=== PATIENT | male | born 1945 | race Caucasian/White ===

== ENCOUNTER 2018-04-14 19:25 | Emergency (ER) | payer OTHER ==
[~2018-04-14] VITALS: Ht 175.3 cm; Wt 76.7 kg
--- NOTE | 2018-04-14 19:33 | Emergency Room Report ---
History of Present Illness General Chief Complaint: Syncope Source: Patient, EMS (Marshall Bonilla MD) Present Illness HPI Patient is a 72-year-old male presented after witnessed syncopal episode. Patient reportedly had syncopal episode after drinking alcohol and smoking a marijuana vape. Patient states he normally does not drink so much. He denies any prior cardiac history. He had recently flown in from [place].He reports having some occipital headache after hitting his head.Patient denies any recent leg pain or swelling. (Marshall Bonilla MD) Allergies: Coded Allergies: No Known Allergies (Unverified , 04/14/18) Patient History Past Medical History: see triage record Reviewed Nursing Documentation: PMH: Agreed; PSxH: Agreed (Marshall Bonilla MD) Nursing Documentation-PMH Past Medical History: No History, Except For (Marshall Bonilla MD) Physical Exam Vital Signs Date Time Temp Pulse Resp B/P (MAP) Pulse Ox O2 Delivery O2 Flow Rate FiO2 04/14/18 19:17 97.7 95 16 115/75 98 Room Air Sp02 EP Interpretation: reviewed, normal General Appearance: normal inspection, well appearing, no apparent distress, alert, GCS 15, non-toxic Head: atraumatic ENT: normal ENT inspection, hearing grossly normal, normal voice Neck: normal inspection, full range of motion, supple, no bony tend Respiratory: normal inspection, lungs clear, normal breath sounds, no respiratory distress, no retraction, no wheezing Cardiovascular #1: regular rate, rhythm, no edema Gastrointestinal: normal inspection, normal bowel sounds, non tender, soft, no guarding, no hernia Genitourinary: no CVA tenderness Musculoskeletal: normal inspection, back normal, normal range of motion Neurologic: normal inspection, alert, oriented x3, responsive, 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 This may have contributed to his syncope episode. EKG interpreted by me showed normal sinus rhythm without acute ST or T wave changes. Patient was noted to have no premonitory chest pain. Patient denies any recent leg pain or swelling. CTA of the chest was ordered due to patient's recent plane travel and risk for possible PEPatient presented for syncope. Differential diagnosis include was not limited to anemia, orthostatic hypotension, vasovagal episode, arrhythmia among others. Because of complexity of patient's case laboratory testing and imaging studies were ordered.CT of the chest read by radiology showed large renal cysts without evident pulmonary embolism or aortic dissection. Patient declined CT imaging of his head. Patient has known history of renal cyst. Patient was discussed with Dr. Brewster for observation. Patient's initial troponin was nondiagnostic. Patient was endorsed to Dr. Hunt troponin. Laboratory Tests Test 04/14/18 20:00 04/14/18 22:00 04/15/18 04:00 White Blood Count 7.2 K/UL (4.8-10.8) Red Blood Count 4.91 M/UL (4.70-6.10) Hemoglobin 14.9 G/DL (14.2-18.0) Hematocrit 45.2 % (42.0-52.0) Mean Corpuscular Volume 92 FL (80-99) Mean Corpuscular Hemoglobin 30.3 PG (27.0-31.0) Mean Corpuscular Hemoglobin Concent 32.9 G/DL (32.0-36.0) Red Cell Distribution Width 13.1 % (11.6-14.8) Platelet Count 142 K/UL (150-450) L Mean Platelet Volume 9.4 FL (6.5-10.1) Neutrophils (%) (Auto) 66.5 % (45.0-75.0) Lymphocytes (%) (Auto) 21.1 % (20.0-45.0) Monocytes (%) (Auto) 10.1 % (1.0-10.0) H Eosinophils (%) (Auto) 1.3 % (0.0-3.0) Basophils (%) (Auto) 1.1 % (0.0-2.0) Prothrombin Time 10.3 SEC (9.30-11.50) Prothrombin Time INR 1.0 (0.9-1.1) PTT 20 SEC (23-33) L Urine Color Pale yellow Urine Appearance Clear Urine pH 5 (4.5-8.0) Urine Specific Buchanan 1.015 (1.005-1.035) Urine Protein 2+ (NEGATIVE) H Urine Glucose (UA) Negative (NEGATIVE) Urine Ketones 1+ (NEGATIVE) H Urine Blood 1+ (NEGATIVE) H Urine Nitrite Negative (NEGATIVE) Urine Bilirubin Negative (NEGATIVE) Urine Urobilinogen Normal MG/DL (0.0-1.0) Urine Leukocyte Esterase Negative (NEGATIVE) Urine RBC 2-4 /HPF (0 - 0) H Urine WBC 0 /HPF (0 - 0) Urine Squamous Epithelial Cells Occasional /LPF Urine Bacteria None /HPF (NONE) Sodium Level 141 MMOL/L (136-145) Potassium Level 3.7 MMOL/L (3.5-5.1) Chloride Level 106 MMOL/L (98-107) Carbon Dioxide Level 28 MMOL/L (21-32) Anion Gap 7 mmol/L (5-15) Blood Urea Nitrogen 22 mg/dL (7-18) H Creatinine 1.2 MG/DL (0.55-1.30) Estimate Glomerular Filtration Rate 59.9 mL/min (>60) Glucose Level 95 MG/DL (74-106) Calcium Level 8.8 MG/DL (8.5-10.1) Total Bilirubin 0.9 MG/DL (0.2-1.0) Aspartate Amino Transferase (AST) 18 U/L (15-37) Alanine Aminotransferase (ALT) 30 U/L (12-78) Alkaline Phosphatase 58 U/L (46-116) Troponin I 0.178 ng/mL (0.000-0.056) Total Protein 7.1 G/DL (6.4-8.2) Albumin 3.6 G/DL (3.4-5.0) Globulin 3.5 g/dL Albumin/Globulin Ratio 1.0 (1.0-2.7) Lipase 115 U/L (73-393) Serum Alcohol 71 mg/dL (Marshall Bonilla MD) ER Course Hospital Course 72-year-old male presents ED s/p syncopal episode. Clinical course Patient initially seen and evaluated by Dr. Bonilla, please see his note for full history and physical Initial troponin 0.178. Patient was to be admitted. Patient currently in ED due to ED boarding. Repeat troponin 2 here shows normalization with troponin now 0.00 Patient is asking to be discharged. States he feels better. Walking in ED without difficulty. Denies chest pain or shortness of breath. States that he smoked some marijuana just prior to onset of symptoms Admitting physician Dr. Brewster at bedside to evaluate patient; agrees the patient can be discharged to home at this time. I agree with this assessment. Patient states he has a PMD to follow-up with I. I feel this is a highly complex case requiring extensive working including EKG/Rhythm strip, Xray/CT/US, Blood/urine lab work, repeat exams while in ED, and administration of strong opiates/narcotics for pain control, admission to hospital or close patient follow up. Diagnosis - syncope Stable and discharged to home. Followup with PMD. Return to ED if symptoms recur or worsen Labs Test 04/14/18 20:00 04/14/18 22:00 04/15/18 04:00 White Blood Count 7.2 K/UL (4.8-10.8) Red Blood Count 4.91 M/UL (4.70-6.10) Hemoglobin 14.9 G/DL (14.2-18.0) Hematocrit 45.2 % (42.0-52.0) Mean Corpuscular Volume 92 FL (80-99) Mean Corpuscular Hemoglobin 30.3 PG (27.0-31.0) Mean Corpuscular Hemoglobin Concent 32.9 G/DL (32.0-36.0) Red Cell Distribution Width 13.1 % (11.6-14.8) Platelet Count 142 K/UL (150-450) Mean Platelet Volume 9.4 FL (6.5-10.1) Neutrophils (%) (Auto) 66.5 % (45.0-75.0) Lymphocytes (%) (Auto) 21.1 % (20.0-45.0) Monocytes (%) (Auto) 10.1 % (1.0-10.0) Eosinophils (%) (Auto) 1.3 % (0.0-3.0) Basophils (%) (Auto) 1.1 % (0.0-2.0) Prothrombin Time 10.3 SEC (9.30-11.50) Prothromb Time International Ratio 1.0 (0.9-1.1) Activated Partial Thromboplast Time 20 SEC (23-33) Urine Color Pale yellow Urine Appearance Clear Urine pH 5 (4.5-8.0) Urine Specific Buchanan 1.015 (1.005-1.035) Urine Protein 2+ (NEGATIVE) Urine Glucose (UA) Negative (NEGATIVE) Urine Ketones 1+ (NEGATIVE) Urine Blood 1+ (NEGATIVE) Urine Nitrite Negative (NEGATIVE) Urine Bilirubin Negative (NEGATIVE) Urine Urobilinogen Normal MG/DL (0.0-1.0) Urine Leukocyte Esterase Negative (NEGATIVE) Urine RBC 2-4 /HPF (0 - 0) Urine WBC 0 /HPF (0 - 0) Urine Squamous Epithelial Cells Occasional /LPF Urine Bacteria None /HPF (NONE) Sodium Level 141 MMOL/L (136-145) Potassium Level 3.7 MMOL/L (3.5-5.1) Chloride Level 106 MMOL/L (98-107) Carbon Dioxide Level 28 MMOL/L (21-32) Anion Gap 7 mmol/L (5-15) Blood Urea Nitrogen 22 mg/dL (7-18) Creatinine 1.2 MG/DL (0.55-1.30) Estimat Glomerular Filtration Rate 59.9 mL/min (>60) Glucose Level 95 MG/DL (74-106) Calcium Level 8.8 MG/DL (8.5-10.1) Total Bilirubin 0.9 MG/DL (0.2-1.0) Aspartate Amino Transf (AST/SGOT) 18 U/L (15-37) Alanine Aminotransferase (ALT/SGPT) 30 U/L (12-78) Alkaline Phosphatase 58 U/L (46-116) Troponin I 0.178 ng/mL (0.000-0.056) 0.000 ng/mL (0.000-0.056) 0.003 ng/mL (0.000-0.056) Total Protein 7.1 G/DL (6.4-8.2) Albumin 3.6 G/DL (3.4-5.0) Globulin 3.5 g/dL Albumin/Globulin Ratio 1.0 (1.0-2.7) Lipase 115 U/L (73-393) Serum Alcohol 71 mg/dL (Brad Bills MD) EKG Diagnostic Results Rate: normal Rhythm: NSR ST Segments: no acute changes (Marshall Bonilla MD) Last Vital Signs Date Time Temp Pulse Resp B/P (MAP) Pulse Ox O2 Delivery O2 Flow Rate FiO2 04/14/18 19:17 97.7 95 16 115/75 98 Room Air Status: improved (Marshall Bonilla MD) Status: improved (Brad Bills MD) Disposition: HOME, SELF-CARE Condition: Stable Marshall Bonilla MD Apr 14, 2018 19:33 Brad Bills MD Apr 15, 2018 11:35
[2018-04-14 19:45] VITALS: BP 145/81
--- NOTE | 2018-04-14 19:50 | NUR ---
ED Nurse Note: pt brought in by [facility] c/o syncope, per EMS report pt was walking and had syncopal episode on the streets sidewalk, and hit his head per family report but no deformity, no open wound, no contusion, +tenderness. Pt AA&ox4, gcs=15, skin warm and dry, resp even and unlabored, -n/v/d, ambulates w/steady gait, will cont monitor. NSR on monitoring specialist. vss.
--- NOTE | 2018-04-14 20:00 | NUR ---
ED Nurse Note: pt refused to go CT, ERMD aware, verified ERMD prior to giving pt water. per ERMD, pt able to drink
[2018-04-14 20:28] LABS: APPEARANCE,URINE CLEAR; BILIRUBIN, URINE NEGATIVE (NEGATIVE); COLOR,URINE PALE YELLOW; GLUCOSE, URINE (UA) NEGATIVE (NEGATIVE); KETONES,URINE 1+ (NEGATIVE); LEUKOCYTE ESTERASE ,URINE NEGATIVE (NEGATIVE); NITRITE,URINE NEGATIVE (NEGATIVE); PH,URINE 5 (4.5-8.0); PROTEIN,URINE 2+ (NEGATIVE); UROBILINOGEN,URINE NORMAL MG/DL (0.0-1.0)
[2018-04-14 20:32] LABS: BASOPHILS % (AUTO) 1.1 % (0.0-2.0); EOSINOPHILS % (AUTO) 1.3 % (0.0-3.0); HEMATOCRIT 45.2 % (42.0-52.0); HEMOGLOBIN 14.9 G/DL (14.2-18.0); LYMPHOCYTES % (AUTO) 21.1 % (20.0-45.0); MEAN CORPUSCULAR VOLUME 92 FL (80-99); MONOCYTES % (AUTO) 10.1 % (1.0-10.0); NEUTROPHILS % (AUTO) 66.5 % (45.0-75.0); PLATELET COUNT 142 K/UL (150-450); RED BLOOD COUNT 4.91 M/UL (4.70-6.10); RED CELL DISTRIBUTION WIDTH 13.1 % (11.6-14.8); WHITE BLOOD COUNT 7.2 K/UL (4.8-10.8)
[2018-04-14 20:37] LABS: ANION GAP 7 mmol/L (5-15); BLOOD UREA NITROGEN 22 mg/dL (7-18); CALCIUM 8.8 MG/DL (8.5-10.1); CARBON DIOXIDE 28 MMOL/L (21-32); CHLORIDE 106 MMOL/L (98-107); CREATININE 1.2 MG/DL (0.55-1.30); POTASSIUM 3.7 MMOL/L (3.5-5.1); SODIUM 141 MMOL/L (136-145)
[2018-04-14 20:42] LABS: ALANINE AMINOTRANSFERASE 30 U/L (12-78); ALBUMIN 3.6 G/DL (3.4-5.0); ALKALINE PHOSPHATASE 58 U/L (46-116); ASPARTATE AMINO TRANSFERASE 18 U/L (15-37); BILIRUBIN,TOTAL 0.9 MG/DL (0.2-1.0)
[2018-04-14] MEDS ORDERED: Isovue-370 150ml vial INJ PRN (20:45)
[2018-04-14 21:53] VITALS: BP 144/65
[2018-04-15 01:35] VITALS: BP 140/68
--- NOTE | 2018-04-15 01:37 | NUR ---
ER Nurse Note: Pt calm, cooperative, VSS, no signs of distress, asleep. All orders completed per ERMD orders. Inpt orders received from Dr. Brewster via to/rb. All safety meaures met; [facility]
--- NOTE | 2018-04-15 03:25 | NUR ---
ER Nurse Note: Pt asleep, VSS, no signs of distress. Bed in lowest position, all saftey measures met. Contact information, Wendy Mendenhall, ; . Will continue to [facility].
[2018-04-15] MEDS ORDERED: ALPRAZolam 0.5mg tab ORAL ONE (03:45)
[2018-04-15 05:24] VITALS: BP 136/76
[2018-04-15] MEDS ORDERED: Aspirin EC 81mg tab ORAL SCH (06:00)
[2018-04-15] MEDS ORDERED: Excedrin Migraine tab ORAL SCH (06:00)
--- NOTE | 2018-04-15 06:41 | NUR ---
ER Nurse Note: Pt a&ox4, VSS, no signs of distress. Pt does not complain of pain; complient with treatment plan. Pt stating "when am I going to get a room?" All orders completed per MD orders. Awaiting room upstairs in tele. All safety measures met; will continue to [facility].
[2018-04-15 06:43] VITALS: BP 120/74
--- NOTE | 2018-04-15 07:15 | NUR ---
ER Nurse Note: Hand off report given EDNA Shen
--- NOTE | 2018-04-15 07:16 | NUR ---
ED Nurse Note: Received pt resting on his bed with no distress. Warm blankets were given. VSS. Will continue to assess.
--- NOTE | 2018-04-15 07:45 | NUR ---
ED Nurse Note: Breakfast tray provided to patient. VSS.
[2018-04-15 08:30] VITALS: BP 132/76
--- NOTE | 2018-04-15 09:25 | NUR ---
ED Nurse Note: at the bed side.
--- NOTE | 2018-04-15 09:58 | NUR ---
ED Nurse Note: Dr Brewster at the bed side assessing pt and is okay to discharge the patient anytime. No need for another troponin re draw. Pt is AAO x4, follows commands and denies any symptoms at this time. VSS. Charge Nurse Carla notified.
[2018-04-15 11:00] VITALS: BP 124/80
--- NOTE | 2018-04-15 11:00 | NUR ---
ER Nurse Note: Pt cleared for discharge by ER MD. DC instructions was gien and explained to pt and verbalized understanding of teachings. All medical devices such as ID band/IV removed. Pt AAO x4, ambulatory and left with all personal belongings.
--- NOTE | 2018-04-15 19:15 | History and Physical Report ---
DATE OF ADMISSION: 04/14/2018 HISTORY AND PHYSICAL/DISCHARGE SUMMARY HISTORY OF PRESENT ILLNESS: This is an elderly 72-year-old male who came to the emergency room for having a syncopal episode. The patient claims he came from [place] and he had 1 smoke of marijuana and took Ativan for sleep. The patient when he arrived, he had dizziness and syncope episode while he came with 911. The patient is currently alert, awake, and has been walking. His blood tests so far negative. His troponins are negative. EKG, nonspecific ST and T-wave changes. PAST MEDICAL HISTORY: Hyperlipidemia. MEDICATIONS: None. PHYSICAL EXAMINATION: GENERAL: This is an elderly white male. He is in bed and looks comfortable. VITAL SIGNS: Blood pressure is 130/70, pulse 74, and respirations 18. SKIN: Good skin turgor. HEENT: NAD. CHEST: Bilaterally clear. CARDIOVASCULAR: Regular rhythm. No gallop. No murmur. ABDOMEN: Soft. Positive bowel sounds. Nontender. EXTREMITIES: No CCE. NEUROLOGICAL: There is no focal deficit. GENITOURINARY: Deferred. LABORATORY EXAMINATION: Everything is unremarkable. ASSESSMENT: 1. Syncope. 2. Dehydration. 3. Illegal drug consumption. PLAN: The patient was given IV fluid and he was resuscitated. The patient has pain on walking in the emergency room. Discussed with the ER physician and charge nurse. He can go home. Follow up as outpatient. DISCHARGE DIAGNOSES: 1. Syncope. 2. Dehydration. 3. Substance history of marijuana . The patient was recommended to follow up as outpatient if there is any issue or can go back to [place]. Sharath Brewster M.D. DR: Brendan JOB#: [id number] CC:
--- NOTE | 2018-04-16 16:25 | Cardiology Report ---
APPROVED REPORT EKG Measurement Heart [id number] Normal sinus rhythm Normal ECG
--- NOTE | 2018-04-16 16:26 | Cardiology Report ---
APPROVED REPORT EKG Measurement Heart [id number] Normal sinus rhythm Possible Left atrial enlargement Nonspecific ST abnormality Abnormal ECG
== END 2018-04-15 11:00 | disposition home or self-care (01) ==
LOC: EDBD 19:25 → EMR 20:02
DX: R55 Syncope and collapse (principal); F12.90 Cannabis use, unspecified, uncomplicated
CPT/HCPCS: 36415; 71275; 80053; 80329; 81001; 82962; 83690; 84484; 85025; 85610; 85730; 93005; 99284; Q9967